=== PATIENT | female | born 1980 | race Caucasian/White ===

== ENCOUNTER → 2019-09-29 | Outpatient (CLI) | payer OTHER | LOC: COL.RAD 12:11 | DX: M25.9 Joint disorder, unspecified (principal) ==

== ENCOUNTER → 2020-03-04 | Outpatient (CLI) | payer OTHER | LOC: COL.RAD 07:45 | DX: K21.0 Gastro-esophageal reflux disease with esophagitis (principal) | CPT/HCPCS: A9541 ==

== ENCOUNTER 2020-03-31 05:25 | Day surgery (SDC) | payer OTHER ==
[2020-03-31] VITALS (12 sets, daily range): BP systolic 96–127; BP diastolic 56–85; PULSE 70–115; TEMP 97.6–98.8
[~2020-03-31] VITALS: Ht 170.2 cm; Wt 76.0 kg
[2020-03-31] MEDS ORDERED: PERCOCET 325 MG1 TA2 PO (05:48)
[2020-03-31] MEDS ORDERED: ADULT MULTIVIT1 EACH PO (07:04)
--- NOTE | 2020-03-31 10:07 | NUR ---
Patient to room from PACU via bed. Alert and oriented. Oriented to room at this time. Having some pain in abd. Bowel sounds hypoactive at this time. Lap sites x6 with edges all approximated, no redness/swelling/discharge, open to air. Denies additional needs at this time.
--- NOTE | 2020-03-31 12:07 | NUR ---
Sitting up in bed with eyes open looking on cell phone. Having some pain in abd. Awaiting clear liquid lunch tray. Denies additional needs at this time. IV fluids disconnected.
--- NOTE | 2020-03-31 13:50 | NUR ---
Patient up to bathroom, voids without difficulty. Ambulates in halls with this nurse to nurses station and back to room. Having increasing pain in abd, rating 7/10, would like pain medication if possible. Will administer as prescribed. Patient back in bed. Denies any further needs.
--- NOTE | 2020-03-31 16:40 | NUR ---
Lying in bed talking with truck engine technician. Has been up to bathroom and continues to void without difficulty. Rating pain in abd at this time 03/22. Explain when she is due for pain medication next and patient is in agreeance to wait until that time. Provided apple juice per patient request. Patient denies additional needs at this time.
--- NOTE | 2020-03-31 18:24 | NUR ---
Rating pain 8/10 in abd. Administer Percocet as prescribed. Patient denies additional needs at this time.
--- NOTE | 2020-03-31 20:00 | NUR ---
Report received, assumed care for night nurse. A&Ox3. Assessment complete. VS stable. Denies nausea/shortness of breath. Rating pain 5/10 on pain scale-to abdomen-described as constant ache. Denies need for intevention. Received percocet earlier. Left hand INT flushes without difficulty. Lap sites x6 to abdomen-edges well approximated-zavaleta set. SCDs currently off per pt request. Plan of care discussed for this shift to include ambulation/pain control. Verbalizes understanding. Denies flatus. Tolerated clear liquid. Denies questions/concerns. Call light in reach. Will monitor.
--- NOTE | 2020-03-31 22:30 | NUR ---
C/O pain to abdomen-rating 8/10 on pain scale-described as heavy pressure. Percocet given per dr order. Up to ambulate in halls. Tolerated well. Discussed importance of ambulation to help with gas pain. VerbaliZes understanding. Has tolerated clear liquids. Will advance to fulls for breakfast per dr order. Call light in reach. will monitor.
[2020-04-01 03:45] VITALS: BP 117/62; PULSE 69; TEMP 97.8
--- NOTE | 2020-04-01 05:09 | NUR ---
Rested off and on this shift. C/o pain to abdomen-described as burn/throb/ache-rated 8/10 on pain scale. Percocet one tab given per dr order. Up to ambulate in hallway-discussed gas pain and need to increase activity. Verbalizes understanding. Insturction given to call if in 45 minutes pain continues for 2nd tab of percocet as ordered. Verbalizes understanding. Call light in reach. Will monitor.
--- NOTE | 2020-04-01 05:59 | NUR ---
Percocet on tab given per dr order. Rating pain 8/10-states first percocet didnt help. Will continue to monitor.
--- NOTE | 2020-04-01 07:37 | NUR ---
Sitting up in bed with eyes open. Tolerated full liquidbreakfast. Says that she notices that different temperatures of food cancause her more discomfort than others. Says that her pain is a consistent 8/10 in her abdomen,does not feel that the Percocet is really alleviating the abd pain. Has passed some gas. No nausea. Lap sites x6 on abd with edges well approximated, no redness/swelling/discharge from sites. Patient denies additional needs at this time.
[2020-04-01 08:41] VITALS: BP 113/62; PULSE 80; TEMP 98.5
--- NOTE | 2020-04-01 10:24 | NUR ---
Rating pain in abd 8/10 and would like pain medication. Administer Percocet at prescribed. Denies additional needs.
--- NOTE | 2020-04-01 11:17 | NUR ---
Continues to rate pain 8/10 in abd and would like second Percocet. Administer Percocet as prescribed. Patient says that she will get up to walk here in a little bit. Denies additional needs at this time.
[2020-04-01 12:00] VITALS: BP 99/66; PULSE 77; TEMP 97.9
--- NOTE | 2020-04-01 12:10 | NUR ---
First visit from the crowning inspector. No needs right now.
[2020-04-01] MEDS ORDERED: PERCOCET 325 MG1 TA2 PO (12:30)
--- NOTE | 2020-04-01 12:55 | NUR ---
Reviewed discharge instructions with the patient. Questions answered, patient signs discharge paperwork. Discharge packet provided to the patient. Patient says that she will contact her son to let them know she is ready to be picked up and will use her call light when they are here to get her.
--- NOTE | 2020-04-01 13:13 | NUR ---
Patient calls and reports here ride is here to pick her up. Patient has all personal belongings. Assisted out to [facility] by MJ Brown, via wheel chair.
== END 2020-04-01 13:14 | disposition home or self-care (01) ==
LOC: SDCO 05:25 → SURG 10:00 → SDCO 04-01 13:14
DX: K21.9 Gastro-esophageal reflux disease without esophagitis (principal); K44.9 Diaphragmatic hernia without obstruction or gangrene; F41.9 Anxiety disorder, unspecified; Z87.891 Personal history of nicotine dependence; Z20.828 Contact with and (suspected) exposure to other viral communicable diseases; Z79.899 Other long term (current) drug therapy
CPT/HCPCS: OP; C1781; C9113; J0330; J1100; J1170; J1885; J2175; J2250; J2405; J2550; J2704; J3010; J7120

== ENCOUNTER → 2020-09-15 | Outpatient (CLI) | payer OTHER ==
[~2020-09-15] MED LIST: ADULT MULTIVIT1 EACH PO; PERCOCET 325 MG1 TA2 PO
== END ==
LOC: COL.RAD 09:50
DX: M40.50 Lordosis, unspecified, site unspecified (principal); Z98.1 Arthrodesis status

== ENCOUNTER → 2020-12-20 | Outpatient (CLI) | payer OTHER | LOC: COL.LAB 08:59 → COL.RAD 09:07 | DX: M48.02 Spinal stenosis, cervical region (principal); M50.10 Cervical disc disorder with radiculopathy, unspecified cervical region; Z98.1 Arthrodesis status ==